=== PATIENT | female | born 1970 | race Caucasian/White ===

== ENCOUNTER → 2017-08-02 | Outpatient (CLI) | payer OTHER ==
[~2017-08-02] MED LIST: FEXO1TAB49 PO; FLUT0.15 NAE; IBUP-1428 PO; NAPR1TAB9 PO
[2017-08-02 18:03] LABS: HEMATOCRIT 34.8 % (37-47); HEMOGLOBIN 11.6 g/dL (12.0-16.0); MEAN CELL VOLUME 85.7 fL (80-100); MEAN CORPUSCULAR HEMOGLOBIN 28.6 pg (25-34); MEAN CORPUSCULAR HGB CONC 33.3 g/dl (32-36); MEAN PLATELET VOLUME 9.4 fL (7.4-10.4); PLATELET COUNT 367 K/uL (130-400); RED CELL DISTRIBUTION WIDTH CV 14.6 % (11.5-14.5); RED CELL DISTRIBUTION WIDTH SD 45.9 fL (36.4-46.3); WHITE BLOOD COUNT 6.63 K/uL (4.8-10.8)
[2017-08-02 18:47] LABS: ALBUMIN 3.8 gm/dl (3.4-5.0); ALKALINE PHOSPHATASE 89 U/L (45-117); ALT/SGPT 20 U/L (12-78); AST/SGOT 20 U/L (15-37); BLOOD UREA NITROGEN 10 mg/dl (7-18); CALCIUM 8.7 mg/dl (8.5-10.1); CARBON DIOXIDE 26 mmol/L (21-32); CREATININE 0.84 mg/dl (0.60-1.20); GLUCOSE 91 mg/dl (70-99); POTASSIUM 3.5 mmol/L (3.5-5.1); SODIUM 139 mmol/L (136-145); TOTAL PROTEIN 7.2 gm/dl (6.4-8.2)
== END | disposition home or self-care (01) ==
LOC: C.LABPVFM 15:41
PROVIDERS: ATTEND Family Medicine
DX: Z12.4 Encounter for screening for malignant neoplasm of cervix (principal); Z12.31 Encounter for screening mammogram for malignant neoplasm of breast

== ENCOUNTER 2023-10-17 20:15 | Observation (INO) ==
[2023-10-17] MEDS: ONDANSETRON INJ 2 MG/ML 2 ML VIAL IV STA ×2 (20:40→21:39)
[2023-10-17] MEDS: SODIUM CHLORIDE 0.9% 1,000 ML IV ONE ×2 (20:46→21:39)
--- NOTE | 2023-10-17 20:50 | Emergency Department Note ---
History of Present Illness General Chief complaint: Nausea Stated complaint: ILNESS Time Seen by Provider: 10/17/23 20:38 Source: patient, family ( who is at the bedside), RN notes reviewed and old records reviewed (01/29/23-primary care offices for fatigue) Mode of arrival: ambulatory Limitations: no limitations History of Present Illness Maximum Pain Intensity: 4 This patient is a 53-year-old female who comes in after being nauseated and hitting her head now she is has a headache and nausea. She had been flying back on airplane there is a lot of turbulence and she got very nauseated and threw up twice her said on the way home she got carsick and ran out of the car to throw up and either passed out and fell and she hit her head. She is a small laceration on her head. The nurse asked me to see her because she was vomiting and uncomfortable appearing the patient does have a headache she denies neck pain. Denies chest pain shortness breath or abdominal pain . no numbness or weakness. She does tend to get carsick. She is not on any blood thinners Home Medications Medication Instructions Recorded Confirmed Type fexofenadine 180 mg tablet 180 mg PO DAILY 11/27/19 10/17/23 History fluticasone propionate 50 1 spray intranasal DAILY 11/27/19 10/17/23 History mcg/actuation nasal spray,suspension multivitamin with minerals-folic 1 tab PO DAILY 11/27/19 10/17/23 History acid 200 mcg chewable tablet valacyclovir 1 gram tablet 1,000 mg PO DAILY PRN Herpes 04/25/21 10/17/23 Rx lesions 5 days #5 tabs Allergies Allergy/AdvReac Type Severity Reaction Status Date / Time codeine AdvReac Intermediate "VOMITING Verified 10/17/23 22:06 FOR HOURS" morphine AdvReac Intermediate "VOMITING Verified 10/17/23 22:06 FOR HOURS" tramadol AdvReac Intermediate "VOMITING Verified 10/17/23 22:06 FOR HOURS" Past Med/Surg History Problem List (Updated 10/17/23 @ 23:28 by Fadi Sanders MD) Tetanus toxoid vaccination administered at current visit (Acute) Face lacerations (Acute) Closed head injury (Acute) Motion sickness (Acute) Dizziness (Acute) Nausea & vomiting (Acute) Syncope (Acute) Laceration of head Bradycardia Vomiting Calcific tendinitis of right shoulder Weight gain Memory changes Thinning hair Fatigue Routine health maintenance Arthrosis of right acromioclavicular joint Right shoulder pain Facial herpetic lesions Bilateral wrist pain (Acute) Paresthesia of hand, bilateral (Acute) No known health problems Surgical History S/P tonsillectomy and adenoidectomy Family History Grandmother Bipolar disorder Grandfather Hypertension Denies family history of Ovarian cancer Prostate cancer Diabetes Myocardial infarction Colorectal cancer Social History Smoking Status: Never smoker Second Hand Exposure: No; Do You Dip or Chew Tobacco: No; Hx Alcohol Use: Yes Alcohol Intake Frequency: Monthly or Less Hx Substance Use: No Preferred Language: Andorran marital status: Current Living Situation: Spouse Current Living Situation Comment: child current occupational status: employed current occupation: teacher Feels Safe at Home: Yes Dental Care, Regularly: Yes Physical Activity Frequency: 1-2 Times per Week Seatbelt Use: always Review of Systems A total of 10 systems reviewed and were otherwise negative Physical Exam Vital Signs Vital Signs - 24 hr 10/17/23 20:19 10/17/23 20:30 10/17/23 20:42 Temperature 36.6 C Temperature Source Oral Pulse Rate 87 103 H Pulse Rate from SpO2 Sensor Respiratory Rate 18 22 Respiratory Effort / Characteristics Non-Labored Spontaneous Respiratory Depth Normal Respiratory Pattern Regular Blood Pressure 123/72 98/71 L Blood Pressure Mean 89 75 Blood Pressure Position Sitting Pulse Oximetry 100 96 Oxygen Delivery Method Room Air Room Air Sepsis Recent Fever Within 48 Hours No Sepsis New/Unexplained Change in Mental Status N/A Sepsis Action Taken by Nursing No Action Required 10/17/23 20:56 10/17/23 21:33 10/17/23 22:00 Temperature Temperature Source Pulse Rate 83 76 85 Pulse Rate from SpO2 Sensor 79 84 Respiratory Rate 24 24 Respiratory Effort / Characteristics Respiratory Depth Respiratory Pattern Blood Pressure 111/78 123/80 Blood Pressure Mean 89 94 Blood Pressure Position Pulse Oximetry 100 96 Oxygen Delivery Method Room Air Room Air Sepsis Recent Fever Within 48 Hours Sepsis New/Unexplained Change in Mental Status Sepsis Action Taken by Nursing 10/17/23 22:00 10/17/23 22:30 Temperature Temperature Source Pulse Rate 89 90 Pulse Rate from SpO2 Sensor 89 90 Respiratory Rate 20 18 Respiratory Effort / Characteristics Respiratory Depth Respiratory Pattern Blood Pressure 123/80 116/69 Blood Pressure Mean 100 91 Blood Pressure Position Pulse Oximetry 97 99 Oxygen Delivery Method Room Air Room Air Sepsis Recent Fever Within 48 Hours Sepsis New/Unexplained Change in Mental Status Sepsis Action Taken by Nursing General: Well developed well nourished middle-aged female who is a bandage around her forehead without active bleeding she is holding emesis bag and vomiting. In no acute respiratory distress, breathing comfortably on room air. Normal speech HEENT: Normal cephalic atraumatic. Pupils are equal round and reactive to light. Extraocular movements are intact. Oropharynx is pink with moist mucous membranes. No swelling of the mouth lips or tongue. Neck: Supple with a midline trachea. No meningeal signs or stiffness, no JVD or bruits. No Stridor. Chest: Clear to auscultation bilaterally. No wheezes or rhonchi. No increased work of breathing. Heart: Regular rate and rhythm without murmurs or gallops. Abdomen: Soft nontender, nondistended without rebound guarding or rigidity. Extremities: No cyanosis clubbing or edema. No calf tenderness or assymetry Spine/Back. Non tender to palpation. No CVA tenderness Skin: Good turgor without rashes. Neurologic exam: Cranial nerves two through 12 are intact. Motor and sensation are intact and symmetrical throughout. Procedures Free Text Procedures Location: Left forehead Total length: There were 2 lacerations. One was 2 cm andone was 3 cm. Total length was 5 cm Complexity: simple Let gel was applied for numbing/anesthesia. The patient tolerated this well and did not require any further numbing. The wound was probed I do not see any damage to any deep structures or any foreign body seen. The wounds were cleansed and irrigated with normal saline. They were approximated using simple interrupted sutures 6-0 Ethilon suture. The smaller wound had 3 sutures applied and the larger of 5 sutures applied. This provided excellent wound edge approximation closure. The patient tolerated the procedure without any difficulties or complications. Course Administered Medications Discontinued Medications Diphenhydramine HCl (Diphenhydramine 50 Mg/Ml Vial) 12.5 mg IV NOW STA Stop: 10/17/23 20:54 Last Admin: 10/17/23 20:55 Dose: 12.5 mg Documented By: SARAH Sodium Chloride (Nss) 1,000 mls @ 999 mls/hr IV .Q1H1M ONE Stop: 10/17/23 21:44 Last Infusion: 10/17/23 21:38 Dose: Infused Documented By: Admin: 10/17/23 20:46 Dose: 999 mls/hr Documented By: SARAH Sodium Chloride (Nss) 1,000 mls @ 999 mls/hr IV .Q1H1M ONE Stop: 10/17/23 22:17 Last Infusion: 10/17/23 22:47 Dose: Infused Documented By: Admin: 10/17/23 21:39 Dose: 999 mls/hr Documented By: SARAH Promethazine HCl (Phenergan) 12.5 mg in 50.5 mls @ 202 mls/hr IV NOW STA Stop: 10/17/23 21:42 Last Infusion: 10/17/23 21:54 Dose: Infused Documented By: Admin: 10/17/23 21:38 Dose: 202 mls/hr Documented By: SARAH Lidocaine (Lidocaine/Epineph/Tetracaine 1 Ea Syr) 1 each EXT NOW STA Stop: 10/17/23 21:46 Last Admin: 10/17/23 22:01 Dose: 1 each Documented By: SARAH Lidocaine HCl (Lidocaine 1% Local 20 Ml Vial) Confirm Administered Dose 1 ml .ROUTE .STK-MED ONE Stop: 10/17/23 22:34 Last Admin: 10/17/23 23:17 Dose: Not Given Documented By: SARAH Lorazepam (Lorazepam 1 Mg/1 Ml Syr Ed Inj Use) 0.5 mg IV ONE STA Stop: 10/17/23 22:05 Last Admin: 10/17/23 22:12 Dose: 0.5 mg Documented By: SARAH Ondansetron HCl (Ondansetron Inj 2 Mg/Ml 2 Ml Vial) 4 mg IV NOW STA Stop: 10/17/23 20:39 Last Admin: 10/17/23 20:40 Dose: 4 mg Documented By: SARAH Ondansetron HCl (Ondansetron Inj 2 Mg/Ml 2 Ml Vial) 4 mg IV NOW STA Stop: 10/17/23 21:18 Last Admin: 10/17/23 21:39 Dose: Not Given Documented By: SARAH Medical Decision Making Differential Diagnosis Head injury, skull fracture, intracranial hemorrhage, concussion, nausea, vomiting, traumatic injuries, cervical spine injury Medical Records Attestation: I reviewed the patient's medical records. Home Medications Current Medication List: was personally reviewed by me Laboratory Data Attestation: I reviewed the patient's lab results. 10/17/23 20:30 10/17/23 20:30 Lab Results 10/17/23 Range/Units 20:30 WBC 8.81 (4.8-10.8) K/ul RBC 4.15 L (4.20-5.40) M/uL Hgb 12.2 (12.0-16.0) g/dl Hct 36.2 L (37.0-47.0) % MCV 87.2 (80.0-100.0) fL MCH 29.4 (25.0-34.0) pg MCHC 33.7 (32.0-36.0) g/dL RDW Std Deviation 42.7 (36.4-46.3) fL RDW Coeff of Raman 13.4 (11.5-14.5) % Plt Count 342 (130-400) K/uL MPV 9.4 (9.4-12.4) fL Immature Gran % (Auto) 0.5 % Neut % (Auto) 66.7 % Lymph % (Auto) 25.0 % [place] % (Auto) 6.9 % Eos % (Auto) 0.6 % Baso % (Auto) 0.3 % Neut # (Auto) 5.88 (1.40-6.50) K/uL Lymph # (Auto) 2.20 (1.20-3.40) K/uL [place] # (Auto) 0.61 H (0.11-0.59) K/uL Eos # (Auto) 0.05 (0.00-0.50) K/uL Baso # (Auto) 0.03 (0.00-0.20) K/uL Immature Gran # (Auto) 0.04 (0.01-0.20) K/uL PT 10.3 (9.0-12.0) Seconds INR 0.9 (0.9-1.1) APTT 23 (21-31) Seconds PTT Ratio 0.9 Sodium 137 (136-145) mmol/L Potassium 3.7 (3.5-5.1) mmol/L Chloride 105 (98-107) mmol/L Carbon Dioxide 18 L (21-32) mmol/L Anion Gap 14 H (3-11) BUN 13 (6-23) mg/dl Creatinine 0.87 (0.6-1.2) mg/dl Est Cr Clr Drug Dosing 71.7 ml/min Est GFR ( Amer) 88.2 ml/min Est GFR (Non-Af Amer) 76.1 ml/min BUN/Creatinine Ratio 14.9 (10-20) Glucose 125 H (70-99(Fasting)) mg/dl Calcium 9.7 (8.6-10.3) mg/dl Total Bilirubin 0.5 (0.2-1.0) mg/dl AST 26 (13-39) U/L ALT 23 (7-52) U/L Alkaline Phosphatase 86 (34-104) U/L Troponin I High Sens < 2.3 (0-14) pg/ml Total Protein 7.3 (6.0-8.3) gm/dl Albumin 4.5 (3.4-5.0) gm/dl Globulin 2.8 (2.5-4.0) gm/dl Albumin/Globulin Ratio 1.6 (0.9-2) Imaging Data Attestation: I personally reviewed and interpreted this imaging study as follows: My Impression: CT of the headno hemorrhage or mass effect seen. Radiologist's Impression: Head CT 10/17/23 20:31 Exam(s): CT HEAD Without Contrast EXAM: CT Head Without Intravenous Contrast CLINICAL HISTORY: Reason for exam: syncopal episode- hit head/laceration. TECHNIQUE: Axial computed tomography images of the head/brain without intravenous contrast. CTDI is 37.61 mGy and DLP is 624.41 mGy-cm. Automated exposure control was utilized for the study. A dose lowering technique was utilized adhering to the principles of ALARA. COMPARISON: CT brain: 11/27/2019 FINDINGS: Motion-induced image degradation limits the exam. Brain: Unremarkable. No hemorrhage. No significant white matter disease. No edema. Senescent punctate basal ganglion calcifications Ventricles: Unremarkable. No ventriculomegaly. Mild involutional changes of the brain. Bones/joints: Unremarkable. No acute fracture. Soft tissues: Unremarkable. Sinuses: Maxillary sinus mild mucosal thickening RT>LT/chronic sinusitis. No fluid levels. Mastoid air cells: Unremarkable as visualized. No mastoid effusion.. IMPRESSION: No obvious acute intracranial abnormality. . Electronically signed by: Familia Ha MD, DABR 10/17/23 21:49 PM ECG Data Attestation: I personally reviewed and interpreted this ECG as follows: Indication: + nausea and + vomiting Rate (beats per minute): 90 Rhythm: + normal sinus ECG Intervals/blocks: + Normal QRS, + Normal QT and + Normal ID ECG [place]: + Normal ECG ST segments: + Normal ST segments ECG Findings: no PACs or no PVCs Comparison ECG Date: no prior available MDM Narrative This patient comes in described above. She is vomiting after hitting her head the nurse asked me to see her. She was given Zofran 4 mg IV and 1 L IV normal saline bolus. IV access had been established and blood work was obtained. I did order CAT scan of the head and neck. EKG shows no ischemic changes or ectopy. She was feeling less nauseated with Zofran but still was complaining of nausea but not actively vomiting. I did give her Benadryl 12.5 mg IV. CAT scan was obtained of her head does not show any fracture or acute abnormality. The patient came back and started vomiting more is given Phenergan 12.5 mg IV. The patient did have an episode where she passed out after retching. On the monitor she did have an episode where she had bradycardia and a brief episode of asystole likely from vagal. She did not require any medication intervention. Her EKG does not show ischemic change or ectopy she is noticing of electrolyte or metabolic abnormalities. Troponin is negative. I did give her Ativan 0.5 mg because she continued to feel very dizzy and have some nausea. This helped greatly and when I went in to recheck her she is resting comfortably and says she felt really well comparatively to earlier. I was then able to sew up her lacerations as outlined above. Total length of 5 cm. She tolerated this without difficulties or complications. She is feeling much better. She is not sure when her last tetanus booster as I looked in the chart for [facility] and is not documented so she probably needs 1 I discussed this with her and did order the Adacel IM. I have consulted Dr. Lujan and the [facility] team to see this patient for admission/observation given her syncopal episode. Continuous cardiac monitoring: Orders placed in EMR for continuous cardiac monitoring: Upon evaluation patient noted to be normal sinus rhythm rate of 80 Impression & Plan Syncope, Nausea & vomiting, Dizziness, Motion sickness, Closed head injury, Face lacerations, Tetanus toxoid vaccination administered at current visit Discharge Plan Visit Data Chief Complaint: Nausea Stated Complaint: ILNESS ED Provider: Fadi Sanders Discharge Problem: Syncope, Nausea & vomiting, Dizziness, Motion sickness, Closed head injury, Face lacerations, Tetanus toxoid vaccination administered at current visit Patient Disposition: Admitted As Inpatient Discharge Instructions Interventions: ED Discharge Assessment Last Done: 10/17/23 23:18 Discharge Problem: Syncope Qualifiers: Syncope type: vasovagal syncope Qualified Code(s): R55 - Syncope and collapse Nausea & vomiting Qualifiers: Vomiting type: unspecified Qualified Code(s): R11.2 - Nausea with vomiting, unspecified Motion sickness Qualifiers: Encounter type: initial encounter Qualified Code(s): T75.3XXA - Motion sickness, initial encounter Closed head injury Qualifiers: Encounter type: initial encounter Qualified Code(s): S09.90XA - Unspecified injury of head, initial encounter Face lacerations Qualifiers: Encounter type: initial encounter Qualified Code(s): S01.81XA - Laceration without foreign body of other part of head, initial encounter
[2023-10-17 20:53] LABS: Basophils # (auto) 0.03 K/uL (0.00-0.20); Basophils % (auto) 0.3 %; Eosinophils # (auto) 0.05 K/uL (0.00-0.50); Eosinophils % (auto) 0.6 %; Hematocrit (blood only) 36.2 % (37.0-47.0); Hemoglobin 12.2 g/dl (12.0-16.0); Immature Granulocytes # (auto) 0.04 K/uL (0.01-0.20); Immature Granulocytes % (auto) 0.5 %; Mean Corpuscular Hemoglobin 29.4 pg (25.0-34.0); Mean Corpuscular Hgb Conc 33.7 g/dL (32.0-36.0); Mean Corpuscular Volume 87.2 fL (80.0-100.0); Mean Platelet Volume 9.4 fL (9.4-12.4); Monocytes # (auto) 0.61 K/uL (0.11-0.59); Monocytes % (auto) 6.9 %; Neutrophils # (auto) 5.88 K/uL (1.40-6.50); Neutrophils % (auto) 66.7 %; Platelet Count 342 K/uL (130-400); RDW Coefficient of Variation 13.4 % (11.5-14.5); RDW Standard Deviation 42.7 fL (36.4-46.3); Red Blood Count 4.15 M/uL (4.20-5.40); White Blood Count 8.81 K/ul (4.8-10.8)
[2023-10-17] MEDS: diphenhydrAMINE 50 MG/ML VIAL IV STA (20:55)
[2023-10-17 21:09] LABS: Alanine Aminotransferase 23 U/L (7-52); Albumin Globulin Ratio 1.6 (0.9-2); Albumin Level 4.5 gm/dl (3.4-5.0); Alkaline Phosphatase 86 U/L (34-104); Anion Gap 14 (3-11); Aspartate Aminotransferase 26 U/L (13-39); BUN Creatinine Ratio 14.9 (10-20); Bilirubin,Total 0.5 mg/dl (0.2-1.0); Blood Urea Nitrogen 13 mg/dl (6-23); Calcium 9.7 mg/dl (8.6-10.3); Carbon Dioxide 18 mmol/L (21-32); Chloride 105 mmol/L (98-107); Creatinine Clr Calc Pharmacy 71.7 ml/min; Est GFR (African American) 88.2 ml/min; Est GFR (Non-African American) 76.1 ml/min; Globulin 2.8 gm/dl (2.5-4.0); Glucose 125 mg/dl (70-99(Fasting)); Potassium 3.7 mmol/L (3.5-5.1); Sodium 137 mmol/L (136-145); Total Protein 7.3 gm/dl (6.0-8.3)
[2023-10-17 21:15] LABS: Troponin I High Sensitivity < 2.3 pg/ml (0-14)
[2023-10-17 21:28] LABS: INR 0.9 (0.9-1.1); Partial Thromboplastin Ratio 0.9; Partial Thromboplastin Time 23 Seconds (21-31); Prothrombin Time 10.3 Seconds (9.0-12.0)
[2023-10-17] MEDS: PROMETHAZINE 12.5 MG/50.5 ML BAG IV STA (21:38)
--- NOTE | 2023-10-17 21:50 | CT Scan Report ---
Exam(s): CT HEAD Without Contrast EXAM: CT Head Without Intravenous Contrast CLINICAL HISTORY: Reason for exam: syncopal episode- hit head/laceration. TECHNIQUE: Axial computed tomography images of the head/brain without intravenous contrast. CTDI is 37.61 mGy and DLP is 624.41 mGy-cm. Automated exposure control was utilized for the study. A dose lowering technique was utilized adhering to the principles of ALARA. COMPARISON: CT brain: 11/27/2019 FINDINGS: Motion-induced image degradation limits the exam. Brain: Unremarkable. No hemorrhage. No significant white matter disease. No edema. Senescent punctate basal ganglion calcifications Ventricles: Unremarkable. No ventriculomegaly. Mild involutional changes of the brain. Bones/joints: Unremarkable. No acute fracture. Soft tissues: Unremarkable. Sinuses: Maxillary sinus mild mucosal thickening RT>LT/chronic sinusitis. No fluid levels. Mastoid air cells: Unremarkable as visualized. No mastoid effusion.. IMPRESSION: No obvious acute intracranial abnormality. . Electronically signed by: Familia Ha MD, HARIS 10/17/23 21:49 PM
[2023-10-17] MEDS: LIDOCAINE/EPINEPH/TETRACAINE 1 EA SYR EXT STA (22:01)
[2023-10-17] MEDS: LORazepam 1 MG/1 ML SYR ED Inj Use IV STA (22:12)
--- NOTE | 2023-10-17 23:01 | History & Physical Report ---
Date of Service October 17, 2023 Assessment & Plan (1) Vomiting: (2) Bradycardia: (3) Laceration of head: Plan 1. Vomiting/nausea Pt has had several episodes of vomiting in the setting of motion sickness. Mucus membranes are dry, electrolytes are within normal range. -Continue Zofran 4mg PRN -Continue IV NS 120 mls -Monitor electrolytes and CBC 2. Bradycardia Pt had episodes of bradycardia during EKG as well as after vomiting. -Admitted to telemetry unit -Ordered echocardiogram 3. Head laceration Laceration at left eyebrow was sutured in ED. -Monitor wound and educate pt regarding care and signs of infection History of Present Illness Chief Complaint: Nausea/vomiting/head laceration Primary Care Provider: Zara Thompson MD Pt is a 53 yo female without significant past medical history who presents to ED with several episodes of nausea and vomiting after flying on a turbulent plane from [place] to [place]. Pt states she is prone to motion sickness when traveling, but uses nasreen root to control her symptoms. She states she vomited 3 times on the plane. When her came to pick her up, she drove most of the way home to help reduce her nausea. In the last few miles, she had to hide puller and got out of the car to vomit. At that time, she leaned forward and fell to the ground, hitting her forehead and sustaining a laceration above her L eyebrow. Pt has received Zofran, Benadryl and Phenergan in the ED and has had several more vomiting episodes. She denies chest pain, SOB, abdominal pain, diarrhea, extremity pain, or numbness/tingling. She denies changes in vision and hearing. She endorses headache and dizziness (when she opens her eyes). Allergies Allergy/AdvReac Type Severity Reaction Status Date / Time codeine AdvReac Intermediate "VOMITING Verified 10/17/23 22:06 FOR HOURS" morphine AdvReac Intermediate "VOMITING Verified 10/17/23 22:06 FOR HOURS" tramadol AdvReac Intermediate "VOMITING Verified 10/17/23 22:06 FOR HOURS" Home Medications Medication Instructions Recorded Confirmed Type fexofenadine 180 mg tablet 180 mg PO DAILY 11/27/19 10/17/23 History fluticasone propionate 50 1 spray intranasal DAILY 11/27/19 10/17/23 History mcg/actuation nasal spray,suspension multivitamin with minerals-folic 1 tab PO DAILY 11/27/19 10/17/23 History acid 200 mcg chewable tablet valacyclovir 1 gram tablet 1,000 mg PO DAILY PRN Herpes 04/25/21 10/17/23 Rx lesions 5 days #5 tabs Past Med/Surg History Problem List (Updated 10/17/23 @ 23:28 by Fadi Sanders MD) Tetanus toxoid vaccination administered at current visit (Acute) Face lacerations (Acute) Closed head injury (Acute) Motion sickness (Acute) Dizziness (Acute) Nausea & vomiting (Acute) Syncope (Acute) Laceration of head Bradycardia Vomiting Calcific tendinitis of right shoulder Weight gain Memory changes Thinning hair Fatigue Routine health maintenance Arthrosis of right acromioclavicular joint Right shoulder pain Facial herpetic lesions Bilateral wrist pain (Acute) Paresthesia of hand, bilateral (Acute) No known health problems Surgical History S/P tonsillectomy and adenoidectomy Family History Grandmother Bipolar disorder Grandfather Hypertension Denies family history of Ovarian cancer Prostate cancer Diabetes Myocardial infarction Colorectal cancer Social History Smoking Status: Never smoker Second Hand Exposure: No; Do You Dip or Chew Tobacco: No; Hx Alcohol Use: Yes Alcohol Intake Frequency: Monthly or Less Hx Substance Use: No Preferred Language: [place] Basket Patcher Required: No Beliefs That Will Affect Care: None marital status: Current Living Situation: Spouse and Family Current Living Situation Comment: child current occupational status: employed current occupation: teacher Feels Safe at Home: Yes Dental Care, Regularly: Yes Physical Activity Frequency: 1-2 Times per Week Seatbelt Use: always Review of Systems Review of Systems: As per HPI Physical Exam Constitutional: well developed, well nourished and + lethargic tremulous at bilateral hands Eyes: PERRL, conjunctivae normal, anicteric sclerae ENMT: external ear and nose normal, oropharynx normal (mucus membranes are dry) Respiratory: normal respiratory effort, lungs clear to auscultation Cardiovascular: RRR, no murmur, no edema Gastrointestinal (Abdomen): normal bowel sounds, soft, nontender, no hepatosplenomegaly Skin: no rashes, warm and dry Neurologic: PERRL, EOMI, accommodation nl, no face palsy, no dysarthria Psychiatric: A+Ox3, euthymic affect Results & Data Results & Data Vital Signs (Past 12 Hours) Vital Signs Temp Pulse Resp BP Pulse Ox O2 Del Method 10/17/23 22:00 85 24 123/80 96 Room Air 10/17/23 21:33 76 24 111/78 100 Room Air 10/17/23 20:56 83 10/17/23 20:42 103 H 22 96 Room Air 10/17/23 20:30 98/71 L 10/17/23 20:19 36.6 C 87 18 123/72 100 Room Air Code Status & VTE Plan VTE Prophylaxis Plan VTE Prophylaxis will be ordered: Yes Supervising Physician Co-Signing Physician Notes Attending addendum: I have physically seen this patient, have supervised the medical residents activities, and agree with the H&P unless as otherwise noted. Assessment and Plan: Intractable nausea, vomiting, headache- Patient reportedly was flying back on the airplane, ran into a lot of turbulence, causing her to become very nauseated. Her reports that on the way home, she got carsick, and threw up twice. He reports that she also passed out or nearly passed out, and hit her head. Patient also vomited several times while in the emergency department. The patient reports that she has had a few instances of similar but less intense vomiting episodes in the past. She denies any questionable food intakes. In the emergency department she did receive normal saline 1 L x 2, Zofran 4 mg IV, Benadryl 12.5 mg IV and Phenergan 12.5 mg IV. Symptoms ultimately improved by addition of lorazepam 0.5 mg IV and she was given in preparation for suturing Continue IV fluids normal saline 125 mL/h x 1 L, Zofran 4 mg IV every 6 hours as needed. Repeat laboratories, CBC with differential and chemistry panel in the a.m. 2 forehead lacerations over left eyebrow One was 2 cm, and the other was 3 cm, all repaired by the emergency department She did receive a Tdap She will need routine care and follow-up for removal Episode of bradycardia- Patient was noted to have a vagal response, associated with near syncope while in the ED. The patient will be admitted to telemetry for serial cardiac enzymes, serial EKG's, cardiac rhythm monitoring and a 2-D echocardiogram with Dopplers.
[2023-10-17] MEDS: LIDOCAINE 1% LOCAL 20 ML VIAL ONE (23:17)
[2023-10-17] MEDS ORDERED: ONDANSETRON INJ 2 MG/ML 2 ML VIAL IV PRN (23:31)
[2023-10-17] MEDS: DIPHTHER/TETAN/PERTUS Vaccine (Tdap, Adol/Adult) 0.5mL IM ONE (23:31)
[2023-10-17] MEDS ORDERED: POLYETHYLENE (MIRALAX) 17 GM PACK PO PRN (23:31)
[2023-10-17] MEDS ORDERED: ACETAMINOPHEN 325 MG TAB PO PRN (23:31)
[2023-10-17] MEDS: SODIUM CHLORIDE 0.9% 1,000 ML IV SCH (23:56)
[2023-10-18 00:45] LABS: Calcium 8.4 mg/dl (8.6-10.3); Creatinine Clr Calc Pharmacy 76.2 ml/min; Est GFR (African American) 96.1 ml/min; Est GFR (Non-African American) 82.9 ml/min
--- NOTE | 2023-10-18 00:57 | CT Scan Report ---
Exam(s): CT C SPINE EXAM: CT Cervical Spine Without Intravenous Contrast CLINICAL HISTORY: Reason for exam: fall. TECHNIQUE: Axial computed tomography images of the cervical spine without intravenous contrast. CTDI is 24.42 mGy and DLP is 449.08 mGy-cm. Automated exposure control was utilized for the study. A dose lowering technique was utilized adhering to the principles of ALARA. COMPARISON: None. FINDINGS: Motion-induced image degradation. Vertebrae: Straightening of normal cervical lordosis, positional versus muscle spasm. No acute fracture. Discs/spinal canal/neural foramina: Arthritis of the atlantoaxial articulation. No significant foraminal or spinal canal stenosis. Soft tissues: Unremarkable. Other findings: Mild/moderate bilateral chronic maxillary sinusitis.. IMPRESSION: Straightening of cervical lordosis, positional versus muscle spasm. Otherwise no significant abnormalities post trauma. . Electronically signed by: Familia Ha MD, HARIS 10/18/23 00:56 AM
[2023-10-18 01:00] LABS: Basophils # (auto) 0.02 K/uL (0.00-0.20); Basophils % (auto) 0.2 %; Hematocrit (blood only) 33.6 % (37.0-47.0); Hemoglobin 11.1 g/dl (12.0-16.0); Immature Granulocytes # (auto) 0.04 K/uL (0.01-0.20); Immature Granulocytes % (auto) 0.4 %; Lymphocytes # (auto) 0.83 K/uL (1.20-3.40); Lymphocytes % (auto) 8.4 %; Mean Corpuscular Hemoglobin 29.2 pg (25.0-34.0); Mean Corpuscular Volume 88.4 fL (80.0-100.0); Mean Platelet Volume 9.2 fL (9.4-12.4); Monocytes # (auto) 0.37 K/uL (0.11-0.59); Monocytes % (auto) 3.7 %; Neutrophils # (auto) 8.65 K/uL (1.40-6.50); Neutrophils % (auto) 87.3 %; Platelet Count 284 K/uL (130-400); RDW Coefficient of Variation 13.6 % (11.5-14.5); RDW Standard Deviation 44.2 fL (36.4-46.3); White Blood Count 9.91 K/ul (4.8-10.8)
--- NOTE | 2023-10-18 05:02 | Billing Data ---
Date of Service October 18, 2023 Coding Level of Care Code 86994 INT INP/OBS CARE
--- NOTE | 2023-10-18 07:07 | XRay Report ---
XR chest 1V not portable CLINICAL HISTORY: Chest pain, nonspecific TECHNIQUE: Single frontal radiograph of the chest was obtained. Comparison: None available at the time of this dictation. FINDINGS: No lines and tubes are seen. The cardiomediastinal silhouette is normal. The lungs are clear. No evid ence of pleural effusion or pneumothorax. IMPRESSION: No acute chest disease. ACT 112: Negative or not required by law. Electronically signed by: Markel Chaney M.D. 10/18/2023 7:06 AM
[2023-10-18] MEDS: FEXOFENADINE HCL 180 MG TAB PO SCH (07:56)
[2023-10-18] MEDS: CEROVITE ADV FORMULA TAB PO SCH (07:56)
[2023-10-18] MEDS: FLUTICASONE PROPIONATE NA SPR 16 GM BTL SCH (07:57)
[2023-10-18 10:38] VITALS: BP 95/61; RESP 17; TEMP 98.2; O2SAT 97
--- NOTE | 2023-10-18 10:39 | Discharge Summary ---
Discharge Summary Date of Service October 18, 2023 Principal Dx & Hospital Course #1 = Principal Diagnosis (1) Vomiting: Pt has had several episodes of vomiting in the setting of motion sickness. Mucus membranes are dry, electrolytes are within normal range. Patient given IV fluids and Zofran prn. On AM of 10/17 patients nausea/vomiting resolved and she was able to eat a regular diet. Reviewed CBC/BMP day of discharge - stable (2) Bradycardia: Patient had episodes of bradycardia following vomiting. She reports she typically has a lower resting heart rate and lowr blood pressure. She was normal sinus rhythm at discharge. Echocardiogram was normal. (3) Laceration of head: Laceration suture in ED. Encouraged to follow up with PCP within 5-7 days for suture removal. Head CT was negative. Monitor wound and education provided to patient on care and signs of infection. (4) Left shoulder pain: Patient complained of left shoulder pain with movement after her fall. X-ray taken and per review appear to be normal. Tylenol encouraged for pain as needed. Admission HPI Per Admitting Provider Pt is a 53 yo female without significant past medical history who presents to ED with several episodes of nausea and vomiting after flying on a turbulent plane from [place] to [place]. Pt states she is prone to motion sickness when traveling, but uses nasreen root to control her symptoms. She states she vomited 3 times on the plane. When her came to pick her up, she drove most of the way home to help reduce her nausea. In the last few miles, she had to jawbone puller and got out of the car to vomit. At that time, she leaned forward and fell to the ground, hitting her forehead and sustaining a laceration above her L eyebrow. Pt has received Zofran, Benadryl and Phenergan in the ED and has had several more vomiting episodes. She denies chest pain, SOB, abdominal pain, diarrhea, extremity pain, or numbness/tingling. She denies changes in vision and hearing. She endorses headache and dizziness (when she opens her eyes). Discharge Exam Constitutional WD/WN, vitals as above Eyes PERRL, conjunctivae normal, anicteric sclerae Respiratory normal respiratory effort, lungs clear to auscultation Cardiovascular RRR, no murmur, no edema Skin no rashes, warm and dry Psychiatric A+Ox3, euthymic affect Updated Medication List Medication Instructions Recorded Confirmed Type fexofenadine 180 mg tablet 180 mg PO DAILY 11/27/19 10/19/23 History fluticasone propionate 50 1 spray intranasal DAILY 11/27/19 10/19/23 History mcg/actuation nasal spray,suspension multivitamin with minerals-folic 1 tab PO DAILY 11/27/19 10/19/23 History acid 200 mcg chewable tablet valacyclovir 1 gram tablet 1,000 mg PO DAILY PRN Herpes 04/25/21 10/19/23 Rx lesions 5 days #5 tabs ondansetron HCl 4 mg tablet 4 mg PO Q6H PRN nausea and 10/18/23 10/19/23 Rx vomiting #20 tabs Hospital Stay Data Consultations 10/17/23 21:53 ED Decision to Admit Stat Diagnostic Imagining Performed Chest X-Ray 10/17/23 20:30 XR chest 1V not portable CLINICAL HISTORY: Chest pain, nonspecific TECHNIQUE: Single frontal radiograph of the chest was obtained. Comparison: None available at the time of this dictation. FINDINGS: No lines and tubes are seen. The cardiomediastinal silhouette is normal. The lungs are clear. No evidence of pleural effusion or pneumothorax. IMPRESSION: No acute chest disease. ACT 112: Negative or not required by law. Electronically signed by: Markel Chaney M.D. 10/18/2023 7:[address] 10/17/23 20:31 Exam(s): CT HEAD Without Contrast EXAM: CT Head Without Intravenous Contrast CLINICAL HISTORY: Reason for exam: syncopal episode- hit head/laceration. TECHNIQUE: Axial computed tomography images of the head/brain without intravenous contrast. CTDI is 37.61 mGy and DLP is 624.41 mGy-cm. Automated exposure control was utilized for the study. A dose lowering technique was utilized adhering to the principles of ALARA. COMPARISON: CT brain: 11/27/2019 FINDINGS: Motion-induced image degradation limits the exam. Brain: Unremarkable. No hemorrhage. No significant white matter disease. No edema. Senescent punctate basal ganglion calcifications Ventricles: Unremarkable. No ventriculomegaly. Mild involutional changes of the brain. Bones/joints: Unremarkable. No acute fracture. Soft tissues: Unremarkable. Sinuses: Maxillary sinus mild mucosal thickening RT>LT/chronic sinusitis. No fluid levels. Mastoid air cells: Unremarkable as visualized. No mastoid effusion.. IMPRESSION: No obvious acute intracranial abnormality. . Electronically signed by: Familia Ha MD, DABR 10/17/23 21:[address] 10/17/23 20:48 Exam(s): CT C SPINE EXAM: CT Cervical Spine Without Intravenous Contrast CLINICAL HISTORY: Reason for exam: fall. TECHNIQUE: Axial computed tomography images of the cervical spine without intravenous contrast. CTDI is 24.42 mGy and DLP is 449.08 mGy-cm. Automated exposure control was utilized for the study. A dose lowering technique was utilized adhering to the principles of ALARA. COMPARISON: None. FINDINGS: Motion-induced image degradation. Vertebrae: Straightening of normal cervical lordosis, positional versus muscle spasm. No acute fracture. Discs/spinal canal/neural foramina: Arthritis of the atlantoaxial articulation. No significant foraminal or spinal canal stenosis. Soft tissues: Unremarkable. Other findings: Mild/moderate bilateral chronic maxillary sinusitis.. IMPRESSION: Straightening of cervical lordosis, positional versus muscle spasm. Otherwise no significant abnormalities post trauma. . Electronically signed by: Familia Ha MD, HARIS 10/18/23 00:56 AM Pending Results Patient Have Any Pending Studies at Discharge: No Discharge Instructions Given to Patient (Per Discharging Provider) Mrs. Garcia, Ari were recently hospitalized following several episodes of vomiting and a fall that resulted to a laceration on your eyebrow. Please see recommendations below regarding your discharge. 1. Please use Zofran every 6 hours as needed for nausea and vomiting. 2. Please resume previous outpatient medications as prescribed. 3. Please follow up with your PCP within the next 5-7 days for suture removal. If you develop any worsening nausea/vomiting, chest pain, or shortness of breath please report to the ER for further evaluation. Sincerely, Maylin Sorenson PA-C Total Time Total Time Spent Total Time Spent (In Minutes): 35 Total Time Includes: Examination of the Patient, Discharge Planning and Medication Reconciliation Supervising Physician Co-Signing Physician Notes During face to face encounter, I obtained a brief physical examination, discussed hospital stay with patient and discharge instructions with patient. I discussed discharge plan of care with DILLON Sorenson I reviewed above note and agree with it except for the following: Patient was admitted with nausea. Her symptoms resolved with supportive care. Patient tolerated regular diet at time of discharge. Coding Level of Care Code 80139 INP/OBS DISCH >30 MIN Diagnoses Vomiting R11.10 Bradycardia R00.1 Laceration of head S01.91XA Left shoulder pain M25.512
--- NOTE | 2023-10-18 14:44 | Electrocardiogram Report ---
Test Reason : Blood Pressure : */* mmHG Vent. Rate : 90 BPM Atrial Rate : 90 BPM P-R Int : 168 ms QRS Dur : 72 ms QT Int : 386 ms P-R-T Axes : 34 69 42 degrees QTcB Int : 472 ms Normal sinus rhythm Normal ECG No previous ECGs available Confirmed by Ronald Casiano ([id number]) on 10/18/2023 2:44:10 PM Referred By: REFERRED SELF Confirmed By: Ronald Casiano
--- NOTE | 2023-10-18 15:02 | XCELERA ---
[id number]
--- NOTE | 2023-10-18 17:22 | XRay Report ---
LEFT SHOULDER 3 VIEWS CLINICAL HISTORY: Fall. Left shoulder pain. FINDINGS: 3 views of the left shoulder are obtained. No prior studies are available for comparison at the time of dictation. The skeletal structures are osteopenic. There is no radiographic evidence of fracture or dislocation. The glenohumeral and acromioclavicular joints are maintained. There is calci fic tendinopathy. The overlying soft tissues are otherwise normal in appearance. The visualized left lung parenchyma appears clear. IMPRESSION: No acute bony abnormality is identified. Electronically signed by: Sonu Merritt M.D. 10/18/2023 5:20 PM
[2023-10-18 17:53] VITALS: PULSE 97
== END 2023-10-18 17:54 | disposition home or self-care (01) ==
LOC: ED 20:15 → 4W 20:15 → SUATTDRO 22:39 → 4W 23:18